=== PATIENT | male | born 2005 | race Caucasian/White ===

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

== ENCOUNTER 2025-05-29 18:34 | Emergency (ER) | payer BC, OTHER ==
[2025-05-29] MEDS: Ketorolac 30 MG/ML SDV IM ONE (19:21)
== END 2025-05-29 20:51 | disposition home or self-care (01) ==
LOC: MW.ED 18:34
DX: S62.002A Unspecified fracture of navicular [scaphoid] bone of left wrist, initial encounter for closed fracture (principal); Z79.899 Other long term (current) drug therapy; V86.56XA Driver of dirt bike or motor/cross bike injured in nontraffic accident, initial encounter
CPT/HCPCS: 29125; 73090-26-LT; 73090-LT; 73110-26-LT; 73110-LT; 73130-26-LT; 73130-LT; 99283; 99283-25